=== PATIENT | male | born 1985 | race Caucasian/White ===

== ENCOUNTER 2021-03-15 13:52 | Observation (INO) ==
[2021-03-15] MEDS ORDERED: IOPAMIDOL 100 ML BOTTLE IV ONE (13:53)
[2021-03-15] MEDS ORDERED: KETOROLAC 30 MG/ML VIAL IV ONE (13:59)
[2021-03-15] MEDS ORDERED: ONDANSETRON 4 MG/2 ML VIAL IV ONE (13:59)
[2021-03-15] MEDS ORDERED: 0.9 % SODIUM CHLORIDE 1,000 ML IV ONE (14:15)
[2021-03-15 14:54] LABS: Hematocrit 43.3 % (40.1-51.0); Hemoglobin 13.9 g/dL (13.7-17.5); Mean Cell Volume 84.9 fL (80.0-100.0); Mean Corpuscular HGB Conc 32.1 g/dL (31.0-36.0); Platelet Count 320 K/mcL (140-440); WBC 9.1 K/mcL (4.5-11.0)
[2021-03-15 15:18] LABS: ALT/SGPT 46 U/L (<40); AST/SGOT 32 U/L (<40); Albumin 4.7 gm/dL (3.2-5.2); Albumin/Globulin Ratio 1.5 (1.0-2.3); Alkaline Phosphatase 74 U/L (39-117); Bilirubin,Total 0.4 mg/dL (0.1-1.0); Blood Urea Nitrogen 13 mg/dL (6-20); Calcium 9.8 mg/dL (8.6-10.4); Carbon Dioxide 27 mmol/L (22-30); Chloride 99 mmol/L (96-108); Globulin 3.1 gm/dL (2.2-3.7); Glomerular Filtration Rate 116; Glucose 119 mg/dL (70-105)
--- NOTE | 2021-03-15 15:26 | Emergency Department Note ---
Abdominal Pain HPI General Chief Complaint: Abdominal Pain Stated Complaint: Abdominal Pain Time Seen by Provider: 03/15/21 13:58 Source: patient Mode of arrival: ambulatory Limitations: no limitations History of Present Illness HPI Narrative: 35-year-old male patient presents with 4 days of mid epigastric abdominal pain. He developed nausea and vomiting x2 this morning. He states symptoms started Friday and came on gradually, but it resolved by Friday. 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 He also endorses some chills but no fever. No previous abdominal surgeries. No history of GI bleeds. He does carry a history of GERD. Denies hematemesis. Had a well formed stool this morning, did not look at it so cannot tell me if there was hematochezia or melena. Does not believe he has been having black or tarry stools. Does not drink alcohol, no history of pancreatitis. Related Data Home Medications Medication Instructions Recorded Confirmed albuterol sulfate 90 mcg/actuation 2 puff INHALATION Q6H PRN 09/01/18 01/27/19 aerosol inhaler (Ventolin HFA) cyclobenzaprine 10 mg tablet See Rx Instructions PO Q8H PRN tab 09/01/18 01/27/19 fenofibrate micronized 134 mg 134 mg PO QDAY 09/01/18 01/27/19 capsule hydroxyzine HCl 25 mg tablet 25 mg PO Q6H PRN tab 11/27/18 01/27/19 mupirocin 2 % topical ointment 1 applic TOPICAL BID 11/27/18 01/27/19 Previous Rx's Medication Instructions Recorded methylphenidate HCl 20 mg tablet 20 mg PO QID #120 tab 01/27/19 Allergies Allergy/AdvReac Type Severity Reaction Status Date / Time No Known Drug Allergies Allergy Verified 01/27/19 07:34 Seasonal allergies Allergy Unknown Unknown Uncoded 11/09/18 08:54 Review of Systems ROS ROS Narrative: Narrative: All systems ED: reviewed and negative except as stated. FORMERLY [facility], [facility] Narrative Patient History Narrative: Narrative: Medical/Surgical/Family History All Active Problems (Updated 03/15/21 @ 16:21 by Anitra Burgos PA-C) Partial small bowel obstruction (Acute) Muscle spasm (Chronic) Poor sleep (Chronic) ADHD (Chronic) Asthma (Chronic) Seasonal allergies (Chronic) Chronic GERD (Chronic) Cellulitis of scalp (Chronic) Hypertriglyceridemia (Chronic) Chewing tobacco use (Chronic) Facial rash (Acute) HALLEY positive (Acute) Systemic lupus erythematosus (Chronic) Atypical chest pain (Acute) Medical History (Updated 03/15/21 @ 16:21 by Anitra Burgos PA-C) ADHD HALLEY positive Asthma Atypical chest pain Cellulitis of scalp Chewing tobacco use Chronic GERD Facial rash Hypertriglyceridemia Muscle spasm Poor sleep Seasonal allergies Systemic lupus erythematosus Surgical History No pertinent past surgical history Family History Grandfather Stroke Maternal Father Heart disease Diabetes Thyroid disorder Social History Smoking Status: Current every day smoker Alcohol Intake Frequency: a few times a week Exam Narrative Narrative: General: AOx3, NAD, nontoxic appearing. Pleasant and conversant. HEENT: PERRLA, EOMI, normocephalic. Moist mucous membranes. Normal facies and normal dentition. Chest: Symmetric, no pain to palpation Respiratory: Lungs clear to auscultation bilaterally. No respiratory distress. Unlabored breathing. Heart: Regular rate and rhythm, no murmurs/clicks/rubs. Abdomen: Midepigastric tenderness, no peritoneal signs. Non distended, normal bowel tones. No organomegaly. Extremities: Warm and well perfused. No edema. DP 2+ bilaterally. No venous stasis. Neuro: No focal deficits. Cranial nerves II-XII grossly normal. Skin: Warm dry, no rashes or lesions, no cyanosis. Psych: Normal mood and affect Heme/Lymph: No abnormal bruising General Limitations: no limitations Course Course Course Narrative: 35-year-old male presents with abdominal pain and nausea and vomiting Reevaluation(s) Reevaluation #1: CBC, CMP, UA Chest to rule out appendicitis, colitis, cholecystitis, pancreatitis Establish IV give IV fluids and antiemetics/analgesics Reevaluation #2: The patient is markedly improved after 30 mg IV Toradol and 4 mg IV Zofran. CBC without leukocytosis, ALT is elevated at 46, but this appears to be chronic Reevaluation #3: CT scan of the abdomen pelvis with contrast shows a's partial small bowel obstruction with a transition point in the distal jejunum. There is a small amount of free fluid in the pelvis. I spoken with Dr. Brooks, general surgery, and he is excepted the patient for admission. Vital Signs Vital signs: Vital Signs Temperature 98.1 F 03/15/21 13:53 Pulse Rate 80 03/15/21 13:53 Respiratory Rate 18 03/15/21 13:53 Pulse Oximetry (%) 98 03/15/21 13:53 Temperature 98.1 F 03/15/21 13:53 Pulse Rate 77 03/15/21 16:02 Respiratory Rate 18 03/15/21 13:53 Blood Pressure 132/84 03/15/21 16:02 Pulse Oximetry (%) 94 03/15/21 16:02 [facility] MDM Narrative Medical decision making narrative: Partial small bowel obstruction We have a bed available here at [facility]. Dr. Brooks has been contacted and has accepted the patient for admission. No NG tube at this time as the patient is not actively nauseated or vomiting. Lab Data Result diagrams: 03/15/21 14:18 03/15/21 14:18 Labs: Lab Results 03/15/21 03/15/21 03/15/21 Range/Units 14:18 14:18 14:18 WBC 9.1 (4.5-11.0) K/mcL RBC 5.10 (4.63-6.08) M/mcL Hgb 13.9 (13.7-17.5) g/dL Hct 43.3 (40.1-51.0) % MCV 84.9 (80.0-100.0) fL MCH 27.3 (26.0-34.0) pg MCHC 32.1 (31.0-36.0) g/dL RDW 13.0 (11.5-14.5) % Plt Count 320 (140-440) K/mcL MPV 9.0 (7.4-10.4) fL Seg Neutrophils % 90 H (38-78) % Band Neutrophils % 1 (0-10) % Lymphocytes % 4 L (15-49) % Monocytes % (Manual) 5 (1-12) % Platelet Estimate Normal (Normal) RBC Morphology Normal (Normal) Sodium 138 (133-145) mmol/L Potassium 4.4 (3.3-5.1) mmol/L Chloride 99 (96-108) mmol/L Carbon Dioxide 27 (22-30) mmol/L Anion Gap 12.0 (8.0-16.0) BUN 13 (6-20) mg/dL Creatinine 0.8 (0.7-1.2) mg/dL GFR Calculation 116 Glucose 119 H (70-105) mg/dL Calcium 9.8 (8.6-10.4) mg/dL Total Bilirubin 0.4 (0.1-1.0) mg/dL AST 32 (<40) U/L ALT 46 H (<40) U/L Alkaline Phosphatase 74 (39-117) U/L Total Protein 7.8 (5.9-8.4) gm/dL Albumin 4.7 (3.2-5.2) gm/dL Globulin 3.1 (2.2-3.7) gm/dL Albumin/Globulin Ratio 1.5 (1.0-2.3) Lipase 17 (7-60) U/L Discharge Plan Patient/Caregiver Discharge Instructions Pt seen by LUMBER STACKER/PA only: Yes Clinical Impression: Partial small bowel obstruction Patient Disposition: Xfer As Inpt ([facility]) Prescriptions: No Action methylphenidate HCl 20 mg tablet 20 mg PO QID Qty: 120 0RF Rx Instructions: OK to fill 03/28/19 albuterol sulfate [Ventolin HFA] 90 mcg/actuation HFA aerosol inhaler 2 puff INHALATION Q6H PRN0RF cyclobenzaprine 10 mg tablet See Rx Instructions PO Q8H PRN0RF Label Comments: 1/2 TO 1 PO Q8H PRN; Rx Instructions: 1/2 TO 1 PO Q8H PRN; fenofibrate micronized 134 mg capsule 134 mg PO QDAY 0RF mupirocin 2 % ointment 1 applic TOPICAL BID 0RF hydroxyzine HCl 25 mg tablet 25 mg PO Q6H PRN0RF
--- NOTE | 2021-03-15 15:50 | Cat Scan Report ---
CLINICAL INFORMATION: Nausea /vomiting and abdominal pain COMPARISON: None. TECHNIQUE: Following water enteric contrast, 80 cc of Isovue-370 were injected intravenously, and 60 seconds later, 0.625 mm helical slices were obtained from the mid heart through the subtrochanteric regions. Following reconstruction, 2.5 mm sagittal, coronal and axial reformatted images were processed and reviewed at bone, lung and soft tissue windows. Five minutes later, 0.625 mm helical slices were obtained from the mid heart through the kidneys and viewed at soft tissue windows.The exam was performed using radiation dose optimization techniques including, but not limited to, automated exposure control, adjustment of the mA and/or kV according to patient size and use of iterative reconstruction technique. FINDINGS: The lung bases are clear. No effusions. The visualized heart is grossly normal. Abdominal images show the gallbladder and bile ducts, liver, both kidneys, adrenal glands, spleen, pancreas and aorta, including aortic branches, are normal in size, configuration and attenuation without focal lesion. There is no free air. Small amount of free fluid is noted in the true pelvis. A few mildly enlarged mesenteric lymph nodes in the right lower quadrant. Pelvic images show normal urinary bladder, prostate and seminal vesicles. Multiple loops of jejunum in the central mesenteric cavity are mildly dilated with a transition point in the anterior right midabdomen (coronal image 46 and axial image 117). The distal small bowel and colon are relatively decompressed. Stomach duodenum and proximal jejunum remain normal in caliber. Sigmoid diverticulosis is appreciated. No evidence of diverticulitis. The remaining colon and the appendix are normal. Moderate edema within the intermesenteric fat appreciated. Bone windows show no osseous abnormality IMPRESSION: Partial small bowel obstruction of the distal jejunum with a transition point in the right anterior mesenteric cavity. This is likely due to to adhesion or stricture. Moderate mesenteric edema is noted with a small amount of free fluid in the true pelvis suggesting early third spacing. Sigmoid diverticulosis, but no evidence of diverticulitis. Interpreted and Authenticated by: Jovon Velez 03/15/21
[2021-03-15 15:56] LABS: Band Neutrophils % 1 % (0-10); Lymphocytes % 4 % (15-49); Monocytes % (Manual) 5 % (1-12); Platelet Estimate NORMAL (Normal); RBC Morphology NORMAL (Normal); Segmented Neutrophils % 90 % (38-78)
[2021-03-15] MEDS ORDERED: DIATRIZOATE MEGLU/DIATRIZO SOD 120 ML BOTTLE PO ONE (17:52)
[2021-03-15] MEDS ORDERED: DIATRIZOATE MEGLU/DIATRIZO SOD 30 ML BOTTLE PO ONE (17:52)
[2021-03-15] MEDS ORDERED: ALBUTEROL SULFATE 200 PUFF INHALER INH PRN (18:05)
[2021-03-15] MEDS ORDERED: FLUTICASONE PROPIONATE SPRAY.NAS NS PRN (18:05)
[2021-03-15] MEDS ORDERED: PROMETHAZINE 25 MG/ML VIAL IV PRN (18:05)
[2021-03-15] MEDS ORDERED: ACETAMINOPHEN 1,000 MG/100 ML BAG IV PRN (18:05)
--- NOTE | 2021-03-15 18:09 | General Surg History&Physical ---
HPI History of Present Illness Patient information: Note initiated : 03/15/21 at 6:03 pm Service Date, if different from initiated Date: [] Patient: True Lopez a 35 y/o M admitted on 03/15/21 for Abdominal Pain. Chief Complaint: [] Chief complaint: Recurrent nausea and vomiting History of present illness: Mr. Lopez is a 35 year old M who was admitted for evaluation and treatment of recurrent nausea and vomiting. He had onset of mid abdominal pain 4 days ago. The symptoms were followed by multiple episodes of nausea and vomiting. 2 days ago his symptoms became worse and he finally saw medical attention. He has not had similar symptoms in the past. He has been passing flatus and had bowel movements last evening and today. CT of the abdomen suggests partial obstruction of the proximal small bowel. He however does have gas and stool in the distal bowel and colon. Review of Systems All systems: reviewed and no additional remarkable complaints except as stated PFSH PFSH All Active Problems (Updated 03/15/21 @ 18:08 by Cuauhtemoc Brooks MD) Adynamic ileus (Acute) Partial small bowel obstruction (Acute) Muscle spasm (Chronic) Poor sleep (Chronic) ADHD (Chronic) Asthma (Chronic) Seasonal allergies (Chronic) Chronic GERD (Chronic) Cellulitis of scalp (Chronic) Hypertriglyceridemia (Chronic) Chewing tobacco use (Chronic) Facial rash (Acute) HALLEY positive (Acute) Systemic lupus erythematosus (Chronic) Atypical chest pain (Acute) Medical History (Updated 03/15/21 @ 18:08 by Cuauhtemoc Brooks MD) ADHD HALLEY positive Asthma Atypical chest pain Cellulitis of scalp Chewing tobacco use Chronic GERD Facial rash Hypertriglyceridemia Muscle spasm Poor sleep Seasonal allergies Systemic lupus erythematosus Surgical History No pertinent past surgical history Family History Grandfather Stroke Maternal Father Heart disease Diabetes Thyroid disorder Social History marital status: alcohol intake frequency: a few times a week seatbelt use: sometimes MEDS/ALLERGIES Home Medications and Allergies Home Medications Medication Instructions Recorded Confirmed Type albuterol sulfate 90 mcg/actuation 2 puff INHALATION Q6H PRN 09/01/18 03/15/21 History aerosol inhaler (Ventolin HFA) buprenorphine 8 mg-naloxone 2 mg 1 tab SUBLINGUAL 3-4XD 03/15/21 03/15/21 History sublingual tablet fexofenadine 30 mg tablet 30 mg PO PRN PRN 03/15/21 03/15/21 History fluticasone propionate 50 1 spray INTRANASAL PRN PRN 03/15/21 03/15/21 History mcg/actuation nasal spray,suspension methylphenidate HCl 20 mg tablet 20 mg PO TID 03/15/21 03/15/21 History Allergies Allergy/AdvReac Type Severity Reaction Status Date / Time No Known Drug Allergies Allergy Verified 01/27/19 07:34 Seasonal allergies Allergy Unknown Unknown Uncoded 11/09/18 08:54 Physical Examination Vital Signs Vital signs: Temp Pulse Resp BP Pulse Ox 98.1 F 88 18 132/84 96 03/15/21 17:50 03/15/21 17:50 03/15/21 17:50 03/15/21 17:50 03/15/21 17:50 General physical appearance General physical exam: well developed, well nourished, no distress and no pain Eyes Eye exam: PERRL and normal ocular movement ENT ENT exam: normal nares, normal mucosa and no congestion; negative decreased hearing Head Head exam IM: Present atraumatic, normal inspection and normocephalic Neck Neck exam: no masses, no bruits, trachea midline, no lymphadenopathy and no venous distension Cardiovascular Cardiovascular exam IM: Present normal rate and rhythm, RRR and +S1; Absent gallop, JVD, systolic murmur or tachycardia Respiratory Respiratory exam: normal expansion, normal respiratory effort and clear to auscultation Abdomen Abdomen: Present soft and tender (Mild tenderness in the midepigastrium; no subcostal tenderness) Integumentary Integumentary: Present no rash, no growths and no abnormal pigmentation Neurologic Neurologic: Present normal coordination and normal sensation Musculoskeletal Musculoskeletal: Present normal gait and normal posture Psychiatric Psychiatric: Present oriented to time, oriented to person, oriented to place, speech is normal and memory intact Results Labs Result diagrams: 03/15/21 14:18 03/15/21 14:18 Labs: Abnormal lab results 03/15/21 03/15/21 Range/Units 14:18 14:18 Seg Neutrophils % 90 H (38-78) % Lymphocytes % 4 L (15-49) % Glucose 119 H (70-105) mg/dL ALT 46 H (<40) U/L Diabetes panel 03/15/21 Range/Units 14:18 Sodium 138 (133-145) mmol/L Potassium 4.4 (3.3-5.1) mmol/L Chloride 99 (96-108) mmol/L Carbon Dioxide 27 (22-30) mmol/L BUN 13 (6-20) mg/dL Creatinine 0.8 (0.7-1.2) mg/dL Glucose 119 H (70-105) mg/dL Calcium 9.8 (8.6-10.4) mg/dL AST 32 (<40) U/L ALT 46 H (<40) U/L Alkaline Phosphatase 74 (39-117) U/L Total Protein 7.8 (5.9-8.4) gm/dL Albumin 4.7 (3.2-5.2) gm/dL Calcium panel 03/15/21 Range/Units 14:18 Calcium 9.8 (8.6-10.4) mg/dL Albumin 4.7 (3.2-5.2) gm/dL Pituitary panel 03/15/21 Range/Units 14:18 Sodium 138 (133-145) mmol/L Potassium 4.4 (3.3-5.1) mmol/L Chloride 99 (96-108) mmol/L Carbon Dioxide 27 (22-30) mmol/L BUN 13 (6-20) mg/dL Creatinine 0.8 (0.7-1.2) mg/dL Glucose 119 H (70-105) mg/dL Calcium 9.8 (8.6-10.4) mg/dL Adrenal panel 03/15/21 Range/Units 14:18 Sodium 138 (133-145) mmol/L Potassium 4.4 (3.3-5.1) mmol/L Chloride 99 (96-108) mmol/L Carbon Dioxide 27 (22-30) mmol/L BUN 13 (6-20) mg/dL Creatinine 0.8 (0.7-1.2) mg/dL Glucose 119 H (70-105) mg/dL Calcium 9.8 (8.6-10.4) mg/dL Total Bilirubin 0.4 (0.1-1.0) mg/dL AST 32 (<40) U/L ALT 46 H (<40) U/L Alkaline Phosphatase 74 (39-117) U/L Total Protein 7.8 (5.9-8.4) gm/dL Albumin 4.7 (3.2-5.2) gm/dL All other labs normal. A/P Assessment and plan (1) Partial small bowel obstruction: Status: Acute (2) Adynamic ileus: Status: Acute (3) ADHD: Status: Chronic Qualifiers: Attention deficit-hyperactivity disorder type: unspecified Qualified Code(s): F90.9 - Attention-deficit hyperactivity disorder, unspecified type (4) Chronic GERD: Status: Chronic Narrative A/P Narrative: IV hydration with saline Metoclopramide 10 mg IV every 6 Zofran 4 mg IV every 4 hours as needed Small bowel follow-through to be performed tomorrow N.p.o. except ice chips and popsicles Time Spent With Patient Time: Total time spent is greater than 50% in coordination of care (as documented) at patient's floor/unit and/or counseling patient:
[2021-03-15] MEDS: 0.9 % SODIUM CHLORIDE 1,000 ML IV SCH (18:44)
[2021-03-15] MEDS: METOCLOPRAMIDE 10 MG/2 ML VIAL IV SCH (18:44)
[2021-03-15] MEDS ORDERED: METOCLOPRAMIDE 10 MG/2 ML VIAL ONE (18:45)
[2021-03-15] MEDS ORDERED: PROMETHAZINE 25 MG/ML VIAL ONE (19:06)
[2021-03-15] MEDS ORDERED: ACETAMINOPHEN 1,000 MG/100 ML BAG IV ONE (19:07)
[2021-03-15] MEDS ORDERED: FEXOFENADINE 180 MG TABLET PO PRN (20:46)
[2021-03-15] MEDS ORDERED: BUPRENORPHINE/NALOXONE 4MG/1MG ORAL FILM SL SCH (21:00)
[2021-03-15] MEDS ORDERED: METHYLPHENIDATE HCL 20 MG PO SCH (21:00)
[2021-03-15] MEDS: METHYLNALTREXONE BROMIDE 12 MG/0.6 ML SYRINGE SQ SCH (22:06)
[2021-03-16] MEDS: METOCLOPRAMIDE 10 MG/2 ML VIAL IV SCH ×5 (01:24→23:21)
[2021-03-16] MEDS: 0.9 % SODIUM CHLORIDE 1,000 ML IV SCH ×5 (02:27→13:46)
[2021-03-16] MEDS: PANTOPRAZOLE 40 MG VIAL IV SCH ×2 (07:03→17:07)
[2021-03-16 07:09] LABS: Basophils # (Auto) 0.02 K/mcL (0.00-0.30); Basophils % (Auto) 0.4 % (0.0-2.0); Eosinophils # (Auto) 0.13 K/mcL (0.00-0.70); Eosinophils % (Auto) 2.3 % (0.0-7.0); Hematocrit 35.5 % (40.1-51.0); Hemoglobin 11.8 g/dL (13.7-17.5); Lymphocytes # (Auto) 2.08 K/mcL (1.50-4.80); Lymphocytes % (Auto) 37.1 % (15.5-49.0); Mean Cell Volume 85.5 fL (80.0-100.0); Mean Corpuscular HGB Conc 33.2 g/dL (31.0-36.0); Mean Platelet Volume 9.1 fL (7.4-10.4); Monocytes # (Auto) 0.57 K/mcL (0.10-0.90); Monocytes % (Auto) 10.2 % (1.0-12.0); Platelet Count 260 K/mcL (140-440); RBC 4.15 M/mcL (4.63-6.08); Red Cell Distribution Width 13.2 % (11.5-14.5); WBC 5.6 K/mcL (4.5-11.0)
[2021-03-16 07:44] LABS: ALT/SGPT 40 U/L (<40); AST/SGOT 28 U/L (<40); Albumin 3.6 gm/dL (3.2-5.2); Albumin/Globulin Ratio 1.4 (1.0-2.3); Alkaline Phosphatase 64 U/L (39-117); Bilirubin,Direct < 0.2 mg/dL (0-0.3); Bilirubin,Total 0.4 mg/dL (0.1-1.0); Blood Urea Nitrogen 13 mg/dL (6-20); Calcium 8.5 mg/dL (8.6-10.4); Carbon Dioxide 27 mmol/L (22-30); Chloride 103 mmol/L (96-108); Globulin 2.6 gm/dL (2.2-3.7); Glomerular Filtration Rate 131; Glucose 80 mg/dL (70-105); Lactate Dehydrogenase 161 U/L (135-225); Phosphorous 3.3 mg/dL (2.5-4.5); Triglycerides 186 mg/dL (<150); Uric Acid 5.1 mg/dL (2.5-8.0)
[2021-03-16] MEDS: METHYLNALTREXONE BROMIDE 12 MG/0.6 ML SYRINGE SQ SCH (09:10)
[2021-03-16] MEDS: METHYLPHENIDATE HCL 20 MG PO SCH ×3 (09:13→21:31)
--- NOTE | 2021-03-16 13:04 | XRay Report ---
CLINICAL INFORMATION: Partial distal jejunal obstruction on CT abdominal pain and distention. TECHNIQUE: Following commercial collector imaging, oral Hypaque was ingested and serial imaging was obtained for one hour and 30 minutes. COMPARISON: Abdomen and pelvic CT 03/15/2021 FINDINGS:. The stomach is normal in size and configuration with normal rugal fold pattern. Prompt gastric emptying appreciated. The duodenum, jejunum and ileum are normal in contour and caliber with thin uniform plicae circulares folds and wall. No evidence of distal jejunum obstruction. Small bowel transit time is approximately one hour IMPRESSION: Normal exam. Interpreted and Authenticated by: Jovon Velez 03/16/21
--- NOTE | 2021-03-16 13:23 | General Surgery Progress Note ---
SUBJECTIVE Subjective Patient information: Note initiated : 03/16/21 at 1:18 pm Service Date, if different from initiated Date: [] Patient: True Lopez 35 y/o M admitted on 03/15/21 for Abdominal Pain. Chief Complaint: [] Principal diagnosis: Partial small bowel obstruction Interval history: Patient has done well throughout the night. He had a small bowel follow-through which shows transit through the small bowel and 90minutes. He has had multiple large liquid bowel movements. He has some nausea but no vomiting. Potassium 3.9, BUN 13, creatinine 0.6, white blood count 5.6, hemoglobin 9.8, hematocrit 35.5 Constitutional Vitals: Vital Signs Temp Pulse Resp BP Pulse Ox 97.9 F 71 20 145/90 96 03/16/21 12:00 03/16/21 03:20 03/16/21 12:00 03/16/21 12:00 03/16/21 12:00 Period Temp Pulse Resp BP Sys/Davis Pulse Ox Last 24 Hr 96.9 F-98.9 F 68-88 12-20 107-149/72-108 94-100 Intake and Output 03/15/21 03/16/21 03/16/21 21:59 05:59 13:59 Intake Total 1100 1050 1000 Output Total 275 200 Balance 129 702 2272 Weight 244 lb 6.4 oz Intake & Output: Intake & Output 03/15/21 03/16/21 03/16/21 21:59 05:59 13:59 Intake Total 1100 1050 1000 Output Total 275 200 Balance 328 561 6728 Weight 244 lb 6.4 oz Intake: IV 1100 1000 1000 Sodium Chloride 0.9% 1,000 ml @ 1000 1000 1000 150 mls/hr IV .[id number] [facility] Rx#: [id number] Oral 50 Output: Void Amount 275 200 Other: Urine Appearance Clear Clear Urine Color Dark Yellow Bright Yellow # Unmeasured Emesis 1 ENT ENT exam: Present mucous membranes moist and normal exam Neck Neck exam: Present full ROM and normal inspection Respiratory Respiratory exam: Present normal respiratory exam and CTAB Cardiovascular Cardiovascular exam: Present normal rate and rhythm, RRR, +S1 and +S2; Absent gallop GI/Abdominal GI/Abdominal exam: Present soft and hyperactive bowel sounds; Absent distended or tenderness Extremities Exam Extremities exam: Present full ROM and neurovascular intact Neurological Exam Neurological exam: Present alert and oriented X3; Absent motor sensory deficit Psychiatric Psychiatric exam: Present anxious and normal affect A/P Assessment and plan (1) Partial small bowel obstruction: Status: Acute (2) Adynamic ileus: Status: Acute (3) Chronic GERD: Status: Chronic Narrative A/P Narrative: Full liquid diet Decrease IV to 50 cc/h 2 view abdominal x-ray in the morning Time Spent With Patient Time: Total time spent is greater than 50% in coordination of care (as documented) at patient's floor/unit and/or counseling patient:
[2021-03-16] MEDS ORDERED: LORazepam 1 MG TABLET PO PRN (19:28)
[2021-03-17] MEDS: 0.9 % SODIUM CHLORIDE 1,000 ML IV SCH ×2 (03:10→08:54)
[2021-03-17] MEDS: METOCLOPRAMIDE 10 MG/2 ML VIAL IV SCH ×2 (05:59→11:54)
[2021-03-17] MEDS: PANTOPRAZOLE 40 MG VIAL IV SCH (06:40)
[2021-03-17 06:51] LABS: Basophils # (Auto) 0.02 K/mcL (0.00-0.30); Basophils % (Auto) 0.5 % (0.0-2.0); Eosinophils # (Auto) 0.14 K/mcL (0.00-0.70); Eosinophils % (Auto) 3.2 % (0.0-7.0); Hematocrit 35.7 % (40.1-51.0); Hemoglobin 11.3 g/dL (13.7-17.5); Lymphocytes # (Auto) 2.18 K/mcL (1.50-4.80); Lymphocytes % (Auto) 49.4 % (15.5-49.0); Mean Cell Volume 85.6 fL (80.0-100.0); Mean Corpuscular HGB Conc 31.7 g/dL (31.0-36.0); Mean Platelet Volume 9.1 fL (7.4-10.4); Monocytes # (Auto) 0.39 K/mcL (0.10-0.90); Monocytes % (Auto) 8.8 % (1.0-12.0); Neutrophils % (Auto) 38.1 % (38.0-78.0); Platelet Count 247 K/mcL (140-440); RBC 4.17 M/mcL (4.63-6.08); Red Cell Distribution Width 12.7 % (11.5-14.5); WBC 4.4 K/mcL (4.5-11.0)
[2021-03-17 07:42] LABS: ALT/SGPT 39 U/L (<40); AST/SGOT 22 U/L (<40); Albumin 3.9 gm/dL (3.2-5.2); Albumin/Globulin Ratio 1.5 (1.0-2.3); Alkaline Phosphatase 64 U/L (39-117); Bilirubin,Direct < 0.2 mg/dL (0-0.3); Bilirubin,Total 0.2 mg/dL (0.1-1.0); Blood Urea Nitrogen 10 mg/dL (6-20); Calcium 8.9 mg/dL (8.6-10.4); Carbon Dioxide 28 mmol/L (22-30); Chloride 102 mmol/L (96-108); Globulin 2.6 gm/dL (2.2-3.7); Glomerular Filtration Rate 123; Glucose 84 mg/dL (70-105); Lactate Dehydrogenase 145 U/L (135-225); Phosphorous 3.7 mg/dL (2.5-4.5); Triglycerides 180 mg/dL (<150); Uric Acid 5.2 mg/dL (2.5-8.0)
[2021-03-17] MEDS: METHYLNALTREXONE BROMIDE 12 MG/0.6 ML SYRINGE SQ SCH (08:49)
[2021-03-17] MEDS: METHYLPHENIDATE HCL 20 MG PO SCH (08:54)
--- NOTE | 2021-03-17 09:07 | XRay Report ---
CLINICAL INFORMATION: FOLLOW -UP OF SMALL BOWEL OBSTRUCTION COMPARISON: None. FINDINGS: The stool gas pattern is unremarkable. There is no free air, soft tissue mass, organomegaly or pathologic calcification. IMPRESSION: Normal abdomen Interpreted and Authenticated by: Jovon Velez 03/17/21
--- NOTE | 2021-03-17 13:06 | Discharge Summary ---
Discharge Provider Provider Patient information: Note initiated : 03/17/21 at 12:59 pm Service Date, if different from initiated Date: [] Patient: True Lopez 35 y/o M admitted on 03/15/21 for Abdominal Pain. Chief Complaint: [] Date of admission: 03/15/21 17:51 Discharge date: 03/17/21 Consults: 03/15/21 Consult to Physician [CONS] Stat Comment: Consulting Provider: Cuauhtemoc Brooks Reason For Exam: Physician to Consult COURSE Hospital Course Hospital course: 35-year-old male admitted 2 days ago with complaint of crampy abdominal pain nausea and vomiting. Abdominal x-rays suggested partial small bowel obstruction with questionable transition point in the mid jejunum. Patient was admitted and observed overnight. He had small bowel follow-through performed on yesterday which showed transit through the small bowel at 1hour. He had mult iple bowel movements thereafter. He has clearing of all the contrast from his small bowel with a small amount of contrast in his colon. He was given full liquid diet and is tolerated that without nausea vomiting. He is asymptomatic at this time and tolerated morning meal without difficulty. He is stable for discharge. The patient is on Suboxone which may have been contributing to his intestinal atony. Discharge diagnosis: Adynamic ileus Secondary discharge diagnosis: Partial small bowel obstruction Prior history of narcotic abuse on Suboxone attention deficit disorder Reason for admission: Abdominal pain nausea and vomiting Pertinent studies/significant findings: Small bowel follow-through Complications: None Time Spent with Patient Time attestation: Total time spent providing and/or coordinating discharge services: Physical Examination Vital Signs Vital signs: Temp Pulse Resp BP Pulse Ox 97.2 F 69 18 116/73 99 03/17/21 11:21 03/17/21 11:21 03/17/21 11:21 03/17/21 11:21 03/17/21 11:21 General physical appearance General physical exam: well developed, well nourished, no distress and no pain Eyes Eye exam: PERRL and normal ocular movement ENT ENT exam: normal mucosa Head Head exam IM: Present atraumatic, normal inspection and normocephalic Neck Neck exam: no masses, no bruits, trachea midline, no lymphadenopathy and no venous distension Cardiovascular Cardiovascular exam IM: Present normal rate and rhythm, RRR, +S1 and +S2; Absent JVD or tachycardia Respiratory Respiratory exam: normal expansion, normal respiratory effort and clear to auscultation Abdomen Abdomen: Present soft, non tender and bowel sounds (Normal bowel sounds); Absent distended Integumentary Integumentary: Present no rash, no growths and no abnormal pigmentation Neurologic Neurologic: Present normal coordination and normal sensation Musculoskeletal Musculoskeletal: Present normal gait and normal posture Psychiatric Psychiatric: Present oriented to time, oriented to person, oriented to place, speech is normal and memory intact Discharge Plan Patient/Caregiver Discharge Instructions Activity: increase activity as tolerated Diet: Regular Diet Prescriptions: Continued albuterol sulfate [Ventolin HFA] 90 mcg/actuation HFA aerosol inhaler 2 puff INHALATION Q6H PRN (Reason: short of breath) 0RF fexofenadine 30 mg Tablet 30 mg PO PRN PRN (Reason: Allergy Symptoms) 0RF fluticasone propionate 50 mcg/actuation spray,suspension 1 spray INTRANASAL PRN PRN (Reason: Allergic Reaction) 0RF buprenorphine-naloxone 8-2 mg tablet, sublingual 1 tab SUBLINGUAL 3-4XD 0RF methylphenidate HCl 20 mg tablet 20 mg PO TID 0RF Rx Instructions: OK to fill 03/28/19 Follow Up Plan Follow up with: Cuauhtemoc Brooks MD [Physician] - (Routine follow-up with primary care provider) Patient Disposition: Home, Self-Care Prognosis: Good Rehab Potential: Good I certify that the patient requires SNF services: No Overall status at discharge: patient is back to baseline Discharge Orders: Discharge Order (Routine); Ordered 03/17/21 Ordered By: Cuauhtemoc Brooks Pending Pending Pending: Diet Full Liquid Diet Start FriMar 16 1323 Acetaminophen (Ofirmev) 1,000 mg in 100 mls @ 200 mls/hr IV Q6HP PRN; Protocol PRN Reason: Per Pain Protocol/Fever > 101 Last Infusion: 03/15/21 19:40 Dose: 0 mls/hr Documented by: Admin: 03/15/21 19:05 Dose: 200 mls/hr Documented by: KARINA Sodium Chloride (Sodium Chloride 0.9%) 1,000 mls @ 50 mls/hr IV .Q20H MELVIN Last Admin: 03/17/21 08:54 Dose: Not Given Documented by: Admin: 03/17/21 03:10 Dose: 50 mls/hr Documented by: Infusion: 03/17/21 03:10 Dose: 50 mls/hr Documented by: Admin: 03/16/21 13:46 Dose: 50 mls/hr Documented by: ANDRES Lorazepam (Lorazepam 1 Mg Tablet) 1 mg PO HSP PRN PRN Reason: Insomnia Last Admin: 03/16/21 21:31 Dose: 1 mg Documented by: KARINA Metoclopramide HCl (Metoclopramide 10 Mg/2 Ml Vial) 10 mg IV Q6 [facility] Last Admin: 03/17/21 11:54 Dose: 10 mg Documented by: Admin: 03/17/21 05:59 Dose: 10 mg Documented by: Admin: 03/16/21 23:21 Dose: 10 mg Documented by: Admin: 03/16/21 17:07 Dose: 10 mg Documented by: Admin: 03/16/21 11:42 Dose: 10 mg Documented by: Admin: 03/16/21 06:12 Dose: 10 mg Documented by: Admin: 03/16/21 01:24 Dose: 10 mg Documented by: Admin: 03/15/21 18:44 Dose: 10 mg Documented by: KARINA Pantoprazole Sodium (Pantoprazole 40 Mg Vial) 40 mg IV BIDAC [facility] Last Admin: 03/17/21 06:40 Dose: 40 mg Documented by: Admin: 03/16/21 17:07 Dose: 40 mg Documented by: Admin: 03/16/21 07:03 Dose: 40 mg Documented by: ANDRES Methylphenidate Hcl (20 Mg Tablet) 1 dose PO TID [facility] Last Admin: 03/17/21 08:54 Dose: Not Given Documented by: Admin: 03/16/21 21:31 Dose: Not Given Documented by: Admin: 03/16/21 13:07 Dose: Not Given Documented by: Admin: 03/16/21 09:13 Dose: Not Given Documented by: ANDRES Promethazine HCl (Promethazine 25 Mg/Ml Vial) 12.5 mg IV Q4HP PRN; Protocol PRN Reason: Nausea/Vomiting Last Admin: 03/15/21 19:04 Dose: 12.5 mg Documented by: KARINA Shift Summary 03/17/21 04:32 Shift Summary by Chet Chi Pt admitted with N/V, ABD pain, for partial small bowel obstruction on 03/15. Pt had severe ABD pain w/ N/V on that 1st mike. No further ABD pain or N/V after 2214 on 03/15. He had a sm bowel follow through yesterday 03/16, and has been having loose BM's since then. He is tolerating full Liq diet w/o nausea or problems. Pt is up (I) in Rm, BR, & in melara - gait stable w/o device. He is voiding QS. No skin issues. NS infusing to his RT A/C @ 50ml/hr. VS - WNL on R.A.. He is A&O x4, calm, pleasant, & cooperative. Pt should D/C home later today. Initialized on 03/17/21 04:32 - END OF NOTE
== END 2021-03-17 13:23 | disposition home or self-care (01) ==
LOC: MEDSUR 13:52 → ED 13:52 → MEDSUR 17:57
PROVIDERS: ADMIT Family Medicine Adult Medicine; ATTEND Family Medicine Adult Medicine